=== PATIENT | female | born 1960 | race Caucasian/White ===

== ENCOUNTER → 2017-01-30 | Outpatient (CLI) | payer BC ==
--- NOTE | 2017-01-30 18:04 | PCVCIMAG ---
APPROVED REPORT Indications Bruit Doppler Spectral Velocity Analysis PSV / EDVPSV / EDV ECA (R) 202 / 60 cm/sECA (L) 116 / 37 cm/s dICA (R) 91 / 49 cm/sdICA (L) 65 / 37 cm/s Katie (R) 106 / 61 cm/smICA (L) 102 / 62 cm/s pICA (R) 69 / 31 cm/spICA (L) 58 / 26 cm/s Bulb (R) 46 / 22 cm/sBulb (L) 47 / 22 cm/s dCCA (R) 58 / 25 cm/sdCCA (L) 68 / 31 cm/s mCCA (R) 78 / 32 cm/smCCA (L) 76 / 33 cm/s Vert (R) 43 / 17 cm/sVert (L) 50 / 18 cm/s ICA/CCA ICA/CCA Findings The right carotid bulb has mild plaque. The right proximal internal carotid artery shows no significant stenosis. The right common carotid artery shows no significant stenosis. The right external carotid artery shows >50% stenosis. The left carotid bulb has moderate calcified plaque. The left proximal internal carotid artery shows <40% stenosis. The left common carotid artery shows no significant stenosis. The left external carotid artery shows no significant stenosis. Conclusion 1. Right internal carotid plaquing 2. Left internal carotid stenosis (<40%) 3. Antegrade vertebral flow
--- NOTE | 2017-01-30 22:45 | PCVCIMAG ---
EXAM: ULTRASOUND OF THE THYROID INDICATION: Thyroid nodules. FINDINGS: The right thyroid lobe measures 4.1 x 1.2 x 1.7 cm. The left thyroid lobe measures 3.7 x 1.3 x 1.2 cm. 2.3 x 1.1 x 1.1 cm solid nodule arising exophytically from the lower pole of the right thyroid lobe. 0.4 x 0.6 x 0.7 cm small solid nodule mid left thyroid lobe. IMPRESSION: 2.3 cm indeterminate solid nodule right lower pole as reviewed above. 0.7 cm solid nodule mid left thyroid lobe. Interval follow-up and further evaluation by ENT is suggested. LOC:OFFICE
--- NOTE | 2017-01-31 09:55 | PCVCIMAG ---
APPROVED REPORT Study performed: 01/30/2017 17:11:36 EXAM: Comprehensive 2D, Doppler, and color-flow Echocardiogram Patient Location: Echo lab Status: routine BSA: 1.91 HR: 84 bpmBP: 126/100 mmHg Rhythm: NSR Other Information Study Quality: Good Risk Factors: Cardiac Risk Factors: HTN, Hypercholesterolemia, hyperglycemia Indications Chest Pressure Dyspnea Fatigue Chest Pain Hypertension/HDD 2D Dimensions IVSd: 10.64 (7-11mm)LVOT Diam: 20.85 (18-24mm) LVDd: 38.38 mm PWd: 9.07 (7-11mm)Ascending Ao: 35.20 (22-36mm) LVDs: 16.59 (25-40mm) Left Atrium: 29.66 (27-40mm) Aortic Root: 28.12 mm LV Single Plane 4CH: 60.15 % LV Single Plane 2CH: 70.68 %Lassiter's LVEF: 65.42 % Biplane EF: 67.9 % Volumes Left Atrial Volume (Systole) Single Plane 4CH: 32.35 mLSingle Plane 2CH: 48.62 mL Biplane LA Volume: 41.00 mLLA ESV Index: 21.00 mL/m2 Aortic Valve AoV Peak Simone.: 1.47 m/s AO Peak Gr.: 8.66 mmHgLVOT Max P.12 mmHg LVOT Max V: 1.13 m/s ASHVIN Vmax: 2.62 cm2 Mitral Valve E/A Ratio: 0.6 MV Decel. Time: 191.92 ms MV E Max Simone.: 0.54 m/s MV A Simone.: 0.84 m/s IVRT: 83.04 ms TDI E/Lateral E': 13.50E/Medial E': 18.00 Medial E' Simone.: 0.03 m/s Lateral E' Simone.: 0.04 m/s Pulmonary Valve PV Peak Simone.: 1.02 m/sPV Peak Gr.: 4.13 mmHg Pulmonary Vein P Vein S: 0.70 m/sP Vein A: 0.46 m/s P Vein D: 0.35 m/sP Vein A Dur.: 124.6 msec P Vein S/D Ratio: 2.00 Tricuspid Valve TV Vmax: 0.62 m/s Left Ventricle The left ventricle is normal size. There is normal LV segmental wall motion. Mild to moderate concentric left ventricular hypertrophy. Mi;d mid-cavitary gradient is present. Left ventricular systolic function is borderline hyperdynamic. LVEF is 65-70%. Grade I - abnormal relaxation pattern. Right Ventricle Right ventricle is grossly normal in size. The free wall appears mildly thickened and echogenic, The right ventricular systolic function is normal. Atria The left atrium size is normal. The right atrium size is normal. Aortic Valve The aortic valve is normal in structure. No aortic regurgitation is present. There is no aortic valvular stenosis. Mitral Valve The mitral valve is normal in structure. There is no mitral valve regurgitation noted. No evidence of mitral valve stenosis. Tricuspid Valve The tricuspid valve is normal in structure. There is no tricuspid valve regurgitation noted. Pulmonic Valve The pulmonary valve is normal in structure. There is no pulmonic valvular regurgitation. Great Vessels The aortic root is normal in size. The ascending aorta is upper normal in size. The inferior vena cava is not well visualized. Pericardium There is no pericardial effusion. There is no pleural effusion. <Conclusion> Mild to moderate concentric left ventricular hypertrophy. Mi;d mid-cavitary gradient is present. LVEF is 65-70%. Grade I - abnormal relaxation pattern. Right ventricle is grossly normal in size. The free wall appears mildly thickened and echogenic, The left atrium size is normal. The aortic valve is normal in structure. There is no mitral valve regurgitation noted. There is no tricuspid valve regurgitation noted. There is no pericardial effusion.
== END | disposition home or self-care (01) ==
LOC: PCVCIMAG 16:17
PROVIDERS: ATTEND Internal Medicine Cardiovascular Disease
DX: I65.23 Occlusion and stenosis of bilateral carotid arteries (principal); R07.9 Chest pain, unspecified; K21.9 Gastro-esophageal reflux disease without esophagitis; M54.5 Low back pain; E78.00 Pure hypercholesterolemia, unspecified; R73.9 Hyperglycemia, unspecified; I10 Essential (primary) hypertension; F17.200 Nicotine dependence, unspecified, uncomplicated; E04.1 Nontoxic single thyroid nodule; I44.4 Left anterior fascicular block; I51.7 Cardiomegaly; Z90.710 Acquired absence of both cervix and uterus; Z91.048 Other nonmedicinal substance allergy status; Z88.2 Allergy status to sulfonamides; Z88.8 Allergy status to other drugs, medicaments and biological substances
CPT/HCPCS: 76536; 80061; 93005; 93306; 93880; G0463

== ENCOUNTER → 2017-02-01 | Outpatient (CLI) | payer BC ==
--- NOTE | 2017-02-01 17:52 | PCVCIMAG ---
APPROVED REPORT Exam: Nuclear Stress Test Indication: Dyspnea Patient Location: Out-Patient Stress Nurse: Liset Bolanos RN, Mariaelena Doran RN MT Tech:Barbara DORIS Yuan Ht: 5 ft 4 in Wt: 188 lbs BSA: 1.91 m2 HR: 86 bpm BP: 148/86 mmHg BMI: 32.2 Rhythm: SR Medical History Medical History: HTN, Hyperlipidemia, Smoking, Family Hx CAD Medications: Lisinopril-HCTZ, Prilosec, Livalo Allergies: Compazine, Flexeril, Morphine Pretest Chest Pain Characteristics: No chest pain prior to stress test NM EXAM: Myocardial Perfusion REST/STRESS Imaging Protocol: Rest Tc-99m/Stress Tc-99m 1 day Resting Data Rest SPECT myocardial perfusion imaging was performed in supine position 45 minutes following the intravenous injection of 10.6 mCi of Tc-99m Sestamibi. Time of rest injection: 814 Date: 02/01/2017 Administration Route: IV Administration Site: Right AC Pharmacologic Stress Pharmacologic stress test was performed by injecting Regadenoson 0.4 mg IV push followed by the intravenous injection of 35.1 mCi of Tc-99m Sestamibi. Time of stress injection: 914 Date: 02/01/2017 Administration Route: IV Administration Site: Right AC Gated Stress SPECT was performed 45 minutes after stress injection. The images were gated to evaluate regional wall motion and calculate left ventricular ejection fraction. Perfusion No images done. Wall Motion No images done. Nuclear Conclusion No images done. Interpreted by: Wolf Rico MD Electronically Approved: 02/01/2017 17:51:47 Stress Test Details Stress Test: Pharmacologic stress testing performed using 0.4 mg of regadenoson per 5 mL given IV over 10 seconds. Reason for pharmacologic stress test: physical limitation. Reversal agent Aminophyline 100 mg, given intravenously for Persistent Nausea and Abdomina Discomfort. HR Resting HR: 86 bpmMax Heart Rate (APMHR): 162 bpm Max HR Achieved: 127 bpmTarget HR (85% APMHR): 137 bpm % of APMHR: 78 Recovery HR: 8/3 bpm BP Resting BP: 148/86 mmHg Max BP: 166/92 mmHg ECG Resting ECG: Sinus Rhythm Stress ECG: Sinus Rhythm Maximum ST Deviation: 3 mm Recovery ECG: see nurse note Clinical Reason for Termination: Completed protocol Stress Symptoms: Abdominal discomfort, Nausea, Emesis Exercise duration: 0 min 55 sec Exercise capacity: 1.0 METs Nurse Comments Approx time [id number] - post recovery period (note, EKG time stamp not accurate) Patient reversed with Aminiphylline 100 mg IV 3 minutes post Lexiscan for nausea and vomiting. Reported feeling better for a few minutes post Aminophylline, IV dc'd. Test ended. Approx 10 min post procedure patient complained of severe chest pain. Pt quite diaphoretic and vomiting recurred. EKG changes noted with ST elevation. BP 139/ 60, Nitro 0.4 mg SL placed under tongue. 02 placed NC 3-4 liters. IV placed #20g Right forearm. BP dropped to 60/40, CP continued. IVF NS started to gravity. Meanwhile Dr Shields notified and assessed patient. ASA 325 mg given for patient to chew. Heparin 4000 units IV. 911 dispatch notified, [facility] collaborating supervising physician notified per Dr Shields. ER notified patient would be direct to collaborating supervising physician. [facility] team transported patient to [facility]. Upon discharge, patient experiencing severe chest pain, BP 70/40, SP02 90's, becoming lethargic and slow to respond to verbal stimuli. Patient's called, asked to report to [facility] cardiac collaborating supervising physician, he verbalized understanding. Face sheet demographics faxed to admitting. Report called to Giselle HOFF in collaborating supervising physician. Stress ECG Conclusion ant [facility] elev [facility] infusion reversed taking to collaborating supervising physician emergently st [facility] <Conclusion> ant st elev w [facility] infusion reversed taking to collaborating supervising physician emergently [facility]
== END | disposition home or self-care (01) ==
LOC: PCVCIMAG 07:57
PROVIDERS: ATTEND Internal Medicine Cardiovascular Disease
DX: I10 Essential (primary) hypertension (principal); E78.5 Hyperlipidemia, unspecified; F17.200 Nicotine dependence, unspecified, uncomplicated; K21.9 Gastro-esophageal reflux disease without esophagitis; Z82.49 Family history of ischemic heart disease and other diseases of the circulatory system
CPT/HCPCS: 78452; 93017; A9500